=== PATIENT | female | born 1985 | race Caucasian/White ===

== ENCOUNTER 2017-06-19 09:34 | Emergency (ER) | payer SELFPAY ==
[2017-06-19 09:39] VITALS: BP 122/73; BMI 19.5
[2017-06-19] MEDS ORDERED: TORADOL 60 MG VIAL IM ONE (10:09)
[2017-06-19] MEDS ORDERED: DECADRON INJ IM ONE (10:10)
[2017-06-19] MEDS ORDERED: TORADOL 60 MG VIAL ONE (10:11)
--- NOTE | 2017-06-19 10:11 | DR.GENAD ---
HPI - PCP Primary Care Physician: DR. PATTON - HPI Comment HPI Comment: INCREASING PAIN AND DECREASE ROM RIGHT SHOULDER TIMES 4 DAYS. DENIES TRAUMA. - Complaint/Symptoms Chief Complaint Doctors Comments: RIGHT SHOULDER PAIN. Chief Complaint:: RIGHT SHOULDER PAIN SINCE FRIDAY. PATIENT MOTHER IS HAVING A PROCEDURE SO SHE DECIDED TO HAVE IT LOOKED AT SINCE SHE WAS HERE. - Nurses notes reviewed Nurses Notes Review: Yes - Source History Provided: Patient - Mode of Arrival Mode of Arrival: Ambulatory - Timing Onset of Chief Complaint: 06/15/17 Came on: Gradually - Duration Duration: Constant Duration: Days - Severity Severity: Moderate PMH - PMH Past Medical History: Yes Past Medical History: Depression Past Surgical History: Yes Surgical History: SPINAL SURGEON Surgery - Family History History of Family Medical Conditions: Yes Family Medical History: [place] - Social History Does patient currently use any type of tobacco product: Yes Have you used tobacco products in the last 12 months: Yes Type of Tobacco Use: Cigarettes Does any household member use tobacco: No Alcohol Use: None Do you use any recreational Drugs:: No Lives With: Family Lives Where: Home - infectious screening In the last 2 months have you had wt loss of >10#?: NO Have you had fever, night sweats or hemotysis?: No Have you traveled outside the country in the last 6 months?: No Isolation: Standard ROS - Review of Systems Constitutional: No Symptoms Reported Eyes: No Symptoms Reported ENTM: No Symptoms Reported Respiratoy: No Symptoms Reported Gastrointestinal/Abdominal: No Symptoms Reported Genitourinary: No Symptoms Reported Neurological: No Symptoms Reported Musculoskeletal: Muscle Pain, Neck Pain (LATERAL RIGHT LOWER NECK TENSE MUSCLES) , Right, Shoulder (TENDER, ROM DECREASE.) Integumentary: No Symptoms Reported Hematologic/Lymphatic: No Symptoms Reported Endocrine: No Symptoms Reported All Other Systems: Reviewed and Negative PE - Vital Signs Vitals: Temperature 98.8 F Pulse Rate 54 Respiratory Rate 18 Blood Pressure 122/73 O2 Sat by Pulse Oximetry 100 - General Limitations: No Limitations General Appearance: Alert - Head Head Exam: Normal Inspection - Eyes Eye exam: Normal Appearance - ENT ENT Exam: Normal Exam External Ear Exam: Normal External Inspection TM/Canal Exam: Bilateral Normal Mouth Exam: Normal Inspection Throat Exam: Normal Inspection - Neck Neck Exam: Normal Inspection - Chest Chest Inspection: Symmetric Chest Wall Rise - Respiratory Respiratory Exam: Normal Lung Sounds Bilat Respiratory Exam: Bilateral Clear to Auscultation - Cardiovascular Cardiovascular Exam: Regular Rate, Normal Rhythm, Normal Heart Sounds - Abdominal Exam Abdominal Exam: Normal Bowel Sounds, Soft. negative: Tenderness - Extremities Extremities Exam: Tenderness (RT SHOULDER). negative: Full ROM (DECREASE ROM.) - Back Back Exam: Normal Inspection - Neurologic Neurological Exam: Alert, Oriented X3 - Psychiatric Psychiatric Exam: Normal Affect, Normal Mood - Skin Skin Exam: Normal Color MDM - Differential Diagnosis Differential Diagnosis: RIGHT SHOULDER SPRAIN, STRAIN, FRACTURE. Course - Treatment Treatment: SEE ORDERS. IM MED IN ED. IMPROVING. - Reevaluation 1st: Improved - Education/Counseling Education/Counseling: Patient, Education Educated On: Treatment, Diagnosis, Needs for Follow Up ROR - XRAY XRAY Interpreted by: Radiologist XRAY Findings: REPORT DISCUSS WITH PATIENT. - Diagnosis Discharge Problem: Sprain of right shoulder Qualifiers: Encounter type: initial encounter Shoulder sprain type: unspecified sprain Qualified Code(s): S43.401A - Unspecified sprain of right shoulder joint, initial encounter - Discharge Plan Disposition: 01 HOME, SELF-CARE Condition: Stable Prescriptions: Cyclobenzaprine HCl [FLEXERIL 10 MG *] 10 mg PO TID #20 tab Ketorolac Tromethamine [Toradol Tab] 10 mg PO Q8H PRN #15 tab PRN Reason: Pain - Follow ups/Referrals Follow ups/Referrals: [facility],None [Primary Care Provider] - 3 days - Instructions Instructions: Shoulder Sprain, Musculoskeletal Pain Additional Instructions: RETURN TO ED IF WORSE.
[2017-06-19] MEDS ORDERED: DECADRON INJ ONE (10:16)
--- NOTE | 2017-06-19 11:49 | RAD ---
Right shoulder four views Indication: No known trauma. Pain. Findings: Mild acromioclavicular degenerative change. Glenohumeral joint is intact with minimal DJD. Impression: No acute right shoulder abnormality. Minimal degenerative changes as above. Reported By:
== END 2017-06-19 11:17 | disposition home or self-care (01) ==
LOC: ER 09:42
DX: S43.401A Unspecified sprain of right shoulder joint, initial encounter (principal); Y33.XXXA Other specified events, undetermined intent, initial encounter
CPT/HCPCS: 73030; 96372; 99282; J1100; J1885